=== PATIENT | male | born 1965 | race Caucasian/White ===

== ENCOUNTER 2016-07-28 07:44 | Emergency (ER) | payer OTHER ==
[~2016-07-28] VITALS: Ht 175.3 cm; Wt 72.6 kg
--- NOTE | 2016-07-28 07:50 | NUR ---
[id number], CAME TO ER C/O INTERMITTENT LEFT SIDED CHEST PAIN SINCE LAST NIGHT, WOKE UP IN THE MIDDLE OF THE NIGHT PROFUSELY SWEATING. SKIN IS WARM AND NON DIAPHORETIC. RESP IS EVEN AND UNLABORED WITH NAD NOTED. PATIENT HAD CHEST PAIN PRIOR TO TRIAGE. PAIN FREE DURING ASSESSMENT. DR TREVIZO AT FOR EVAL. PLACED ON MONITOR AND HOSPITAL GOWN.
[2016-07-28] MEDS ORDERED: ASPIRIN 325 MG TABLET ONE (07:54)
[2016-07-28 07:57] VITALS: BP 153/95
--- NOTE | 2016-07-28 08:00 | NUR ---
LFA#18 IV ACCESS. BLOOD SAMPLE COLLECTED SENT TO LAB
[2016-07-28] MEDS: ASPIRIN 325 MG TABLET PO ONE (08:05)
--- NOTE | 2016-07-28 08:08 | NUR ---
XRAY AT BEDSIDE
[2016-07-28 08:10] LABS: BASOPHILS % (AUTO) 0.5 % (0.0-2.0); EOSINOPHILS # (AUTO) 0.3 /CMM (0.0-0.7); EOSINOPHILS % (AUTO) 5.1 % (0.0-6.0); HEMATOCRIT 47 % (39-51); HEMOGLOBIN 16.2 g/dL (13.5-17.5); LYMPHOCYTES # (AUTO) 1.8 /CMM (0.8-4.8); MEAN CORPUSCULAR HEMOGLOBIN 31 PG (26.0-33.0); MEAN CORPUSCULAR HGB CONC 34 g/dl (31.0-36.0); MEAN CORPUSCULAR VOLUME 90 fL (80-96); MONOCYTES # (AUTO) 0.5 /CMM (0.1-1.30); NEUTROPHILS % (AUTO) 59.4 % (43.0-81.0); PLATELET COUNT (AUTO) 241 /CMM (150-450); RED BLOOD CELL COUNT(AUTO) 5.26 MIL/uL (4.5-6.0); WHITE BLOOD COUNT (AUTO) 6.7 K/uL (4.3-11.0)
[2016-07-28 08:20] LABS: CARBON DIOXIDE 27 mmol/L (21-32); CHLORIDE 105 mmol/L (98-107); CREATININE 1.1 mg/dL (0.6-1.3); GFR 70 mL/min (>60); GLUCOSE 114 mg/dL (74-106); POTASSIUM 4.5 mmol/L (3.5-5.1); SODIUM SERUM 140 mmol/L (136-145); UREA NITROGEN, BLOOD 21 mg/dL (7-18)
[2016-07-28 08:28] LABS: INR 0.97 (0.87-1.13); PROTHROMBIN TIME 10.4 SECS (9.5-12.7)
[2016-07-28 08:29] LABS: TROPONIN I < 0.017 ng/mL (0.00-0.056)
[2016-07-28] MEDS ORDERED: IV SET PRIMARY PUMP SET 1 EA INFUS.SET MC ONE (09:06)
[2016-07-28] MEDS ORDERED: IV NS 0.9% 1,000 ML ONE (09:06)
--- NOTE | 2016-07-28 09:06 | NUR ---
[facility] called [phone].
[2016-07-28] MEDS: IV NS 0.9% 1,000 ML BAG IV ONE (09:10)
--- NOTE | 2016-07-28 09:38 | NUR ---
second call to [facility]
--- NOTE | 2016-07-28 10:23 | NUR ---
[facility] ER CALL FOR REPORT AT [phone] VIKKI KAY 1HR.
--- NOTE | 2016-07-28 10:56 | NUR ---
REPORT GIVEN TO [facility].
== END 2016-07-28 11:33 | disposition short-term general hospital (02) ==
LOC: ER 07:46
DX: R07.89 Other chest pain (principal); Z72.0 Tobacco use; Z71.6 Tobacco abuse counseling
CPT/HCPCS: 36415; 71010; 80048; 84484; 85025; 85730; 93005; 96360; 99285; A4606; J7030; Z7610